=== PATIENT | male | born 1990 | race Caucasian/White ===

== ENCOUNTER → 2018-04-04 | Outpatient (CLI) | payer OTHER ==
--- NOTE | 2018-04-04 15:12 | REP ---
Chest two views HISTORY: Dyspnea Comparison: None The lungs are clear. The heart is normal in size. The pulmonary vasculature is normal in appearance. The bony structure is intact. IMPRESSION: No acute disease. Electronically Signed by Farhat Briscoe MD 04/04/2018 03:04 P
== END ==
LOC: M SMT 14:35
PROVIDERS: ATTEND Physician Assistant
DX: R06.00 Dyspnea, unspecified (principal)

== ENCOUNTER → 2018-04-12 | Outpatient (CLI) | payer OTHER ==
[~2018-04-12] MED LIST: METHACHOLINE KIT (J7674) INH ONE
--- NOTE | 2018-04-12 15:16 | PFTRPT ---
Height: 72.00 Inches Weight: 210.00 Lbs BSA: 2.18 Diagnosis: R06.00 DATE OF PROCEDURE: 04/12/2018 ORDERED BY: Bernardo Coronel INTERPRETATION: Study of excellent technical quality. Under protocol, methacholine was administered. At a dose of 2.5 mg or 13.875 CDUs, a 47% decline in the FEV1 was noted. PC of 0.34 is significant. Flow rates did return to baseline post bronchodilator administration. IMPRESSION: Positive methacholine challenge study. MTDD
== END ==
LOC: M CARPUL 09:13
PROVIDERS: ATTEND Physician Assistant
DX: R06.00 Dyspnea, unspecified (principal)